=== PATIENT | female | born 1985 | race Two or more races ===

== ENCOUNTER 2017-09-29 15:24 | Emergency (ER) | payer MEDICAID ==
[~2017-09-29] VITALS: Ht 175.3 cm; Wt 61.2 kg
[2017-09-29] MEDS ORDERED: LORazepam Inj 2mg/ml 1ml IV ONE (15:30)
[2017-09-29 16:06] LABS: BASOPHILS % (AUTO) 1.3 % (0.0-2.0); EOSINOPHILS % (AUTO) 0.3 % (0.0-3.0); HEMOGLOBIN 13.7 G/DL (12.0-16.0); LYMPHOCYTES % (AUTO) 36.4 % (20.0-45.0); MEAN CORPUSCULAR VOLUME 95 FL (80-99); MONOCYTES % (AUTO) 8.7 % (1.0-10.0); NEUTROPHILS % (AUTO) 53.3 % (45.0-75.0); PLATELET COUNT 150 K/UL (150-450); RED BLOOD COUNT 4.31 M/UL (4.20-5.40); RED CELL DISTRIBUTION WIDTH 10.5 % (11.6-14.8); WHITE BLOOD COUNT 4.9 K/UL (4.8-10.8)
[2017-09-29 16:10] LABS: APPEARANCE,URINE SLIGHTLY CLOUDY; BILIRUBIN, URINE NEGATIVE (NEGATIVE); COLOR,URINE PALE YELLOW; GLUCOSE, URINE (UA) NEGATIVE (NEGATIVE); KETONES,URINE NEGATIVE (NEGATIVE); LEUKOCYTE ESTERASE ,URINE 3+ (NEGATIVE); NITRITE,URINE NEGATIVE (NEGATIVE); PH,URINE 8 (4.5-8.0); PROTEIN,URINE NEGATIVE (NEGATIVE); UROBILINOGEN,URINE NORMAL MG/DL (0.0-1.0)
[2017-09-29 16:18] LABS: ANION GAP 13 mmol/L (5-15); BLOOD UREA NITROGEN 6 mg/dL (7-18); CALCIUM 9.4 MG/DL (8.5-10.1); CARBON DIOXIDE 22 MMOL/L (21-32); CHLORIDE 104 MMOL/L (98-107); POTASSIUM 3.5 MMOL/L (3.5-5.1); SODIUM 138 MMOL/L (136-145)
--- NOTE | 2017-09-29 16:25 | Emergency Room Report ---
History of Present Illness General Chief Complaint: General Complaint Source: Patient Present Illness HPI 32-year-old female presents ED for evaluation. Patient brought in by EMS stating that she feels short of breath and her heart is racing. EMS states that patient is having an anxiety attack. Patient denies any history of anxiety. Patient states that 2 days ago she had hemorrhoid surgery. Has been taking [id number] ibuprofen for pain. States that starting today she felt that her heart was racing and she felt short of breath. Denies chest pain. States her pain is well-controlled. Denies any bleeding. Denies drug use. No other aggravating relieving factors. Denies any other associated symptoms Allergies: Coded Allergies: No Known Allergies (Unverified , 09/29/17) Patient History Past Medical History: none Past Surgical History: other - hemorrhoids Pertinent Family History: none Social History: Denies: smoking, alcohol use, drug use Last Menstrual Period: last week Now: No : 2 Para: 2 Immunizations: UTD Reviewed Nursing Documentation: PMH: Agreed; PSxH: Agreed Nursing Documentation-PMH Past Medical History: No Stated History Review of Systems All Other Systems: negative except mentioned in HPI Physical Exam Vital Signs Date Time Temp Pulse Resp B/P (MAP) Pulse Ox O2 Delivery O2 Flow Rate FiO2 09/29/17 14:57 100 20 129/87 99 Room Air Sp02 EP Interpretation: reviewed, normal General Appearance: no apparent distress, alert, GCS 15, non-toxic Head: normocephalic, atraumatic Eyes: bilateral eye normal inspection, bilateral eye PERRL ENT: hearing grossly normal, normal pharynx, no angioedema, normal voice Neck: full range of motion, supple/symm/no masses Respiratory: chest non-tender, lungs clear, normal breath sounds, speaking full sentences Cardiovascular #1: regular rate, rhythm, no edema Cardiovascular #2: 2+ carotid (R), 2+ carotid (L), 2+ radial (R), 2+ radial (L) , 2+ dorsalis pedis (R), 2+ dorsalis pedis (L) Gastrointestinal: normal bowel sounds, non tender, soft, non-distended, no guarding, no rebound Rectal: deferred Genitourinary: normal inspection, no CVA tenderness Musculoskeletal: back normal, gait/station normal, normal range of motion, non- tender Neurologic: alert, oriented x3, responsive, motor strength/tone normal, sensory intact, speech normal Psychiatric: judgement/insight normal, memory normal, no suicidal/homicidal ideation, anxious Reflexes: 3+ bicep (R), 3+ bicep (L), 3+ tricep (R), 3+ tricep (L), 3+ knee (R) , 3+ knee (L) Skin: normal color, no rash, warm/dry, well hydrated Lymphatic: no adenopathy Medical Decision Making Diagnostic Impression: Primary Impression: Dyspnea Qualified Codes: R06.00 - Dyspnea, unspecified ER Course Hospital Course 32-year-old female presents ED stating her heart is racing, shortness of breath. Recent hemorrhoid surgery Differential diagnoses include: arrythmia, ACS, PE Clinical course Patient placed on stretcher. on night monitor. After initial history and physical I ordered labs, EKG, chest x-ray, IVFs, ativan labs reviewed- no leukocytosis, hemoglobin/hematocrit stable, troponins negative , electrolytes okay, ddimer negative EKG - NSR, no acute ischemic changes intepreted by me CXR - no acute process On reassessment patient feeling better. Discussed findings with patient. While there is no prior history of anxiety given negative workup and her symptoms improving with Ativan we'll prescribe short course of Ativan. Recommend close follow-up with PMD I. I feel this is a highly complex case requiring extensive working including EKG/Rhythm strip, Xray/CT/US, Blood/urine lab work, repeat exams while in ED, and administration of strong opiates/narcotics for pain control, admission to hospital or close patient follow up. Diagnosis - dyspnea Stable and discharged to home with Rx Ativan. Followup with PMD. Return to ED if symptoms recur or worse Labs Test 09/29/17 15:35 09/29/17 15:50 White Blood Count 4.9 K/UL (4.8-10.8) Red Blood Count 4.31 M/UL (4.20-5.40) Hemoglobin 13.7 G/DL (12.0-16.0) Hematocrit 41.0 % (37.0-47.0) Mean Corpuscular Volume 95 FL (80-99) Mean Corpuscular Hemoglobin 31.8 PG (27.0-31.0) Mean Corpuscular Hemoglobin Concent 33.5 G/DL (32.0-36.0) Red Cell Distribution Width 10.5 % (11.6-14.8) Platelet Count 150 K/UL (150-450) Mean Platelet Volume 9.9 FL (6.5-10.1) Neutrophils (%) (Auto) 53.3 % (45.0-75.0) Lymphocytes (%) (Auto) 36.4 % (20.0-45.0) Monocytes (%) (Auto) 8.7 % (1.0-10.0) Eosinophils (%) (Auto) 0.3 % (0.0-3.0) Basophils (%) (Auto) 1.3 % (0.0-2.0) D-Dimer 0.19 mg/L FEU (0.00-0.49) Sodium Level 138 MMOL/L (136-145) Potassium Level 3.5 MMOL/L (3.5-5.1) Chloride Level 104 MMOL/L (98-107) Carbon Dioxide Level 22 MMOL/L (21-32) Anion Gap 13 mmol/L (5-15) Blood Urea Nitrogen 6 mg/dL (7-18) Creatinine 1.0 MG/DL (0.55-1.30) Estimat Glomerular Filtration Rate > 60 mL/min (>60) Glucose Level 106 MG/DL (74-106) Calcium Level 9.4 MG/DL (8.5-10.1) Total Bilirubin 1.4 MG/DL (0.2-1.0) Direct Bilirubin 0.3 MG/DL (0.0-0.3) Aspartate Amino Transf (AST/SGOT) 18 U/L (15-37) Alanine Aminotransferase (ALT/SGPT) 15 U/L (12-78) Alkaline Phosphatase 69 U/L (46-116) Total Creatine Kinase 125 U/L (26-308) Creatine Kinase MB 0.6 NG/ML (0.0-3.6) Creatine Kinase MB Relative Index 0.4 Troponin I 0.000 ng/mL (0.000-0.056) Total Protein 7.8 G/DL (6.4-8.2) Albumin 4.0 G/DL (3.4-5.0) Globulin 3.8 g/dL Albumin/Globulin Ratio 1.1 (1.0-2.7) Urine Color Pale yellow Urine Appearance Slightly cloudy Urine pH 8 (4.5-8.0) Urine Specific [place] 1.010 (1.005-1.035) Urine Protein Negative (NEGATIVE) Urine Glucose (UA) Negative (NEGATIVE) Urine Ketones Negative (NEGATIVE) Urine Occult Blood 1+ (NEGATIVE) Urine Nitrite Negative (NEGATIVE) Urine Bilirubin Negative (NEGATIVE) Urine Urobilinogen Normal MG/DL (0.0-1.0) Urine Leukocyte Esterase 3+ (NEGATIVE) Urine RBC 5-10 /HPF (0 - 2) Urine WBC 10-15 /HPF (0 - 2) Urine Squamous Epithelial Cells Many /LPF (NONE/OCC) Urine Bacteria Few /HPF (NONE) Urine HCG, Qualitative Negative (NEGATIVE) Urine Opiates Screen Negative (NEGATIVE) Urine Barbiturates Screen Negative (NEGATIVE) Phencyclidine (PCP) Screen Negative (NEGATIVE) Urine Amphetamines Screen Negative (NEGATIVE) Urine Benzodiazepines Screen Negative (NEGATIVE) Urine Cocaine Screen Negative (NEGATIVE) Urine Marijuana (THC) Screen Negative (NEGATIVE) EKG Diagnostic Results Rate: normal Rhythm: NSR ST Segments: no acute changes ASA given to the pt in ED: No Rhythm Strip Diag. Results EP Interpretation: yes Rhythm: NSR, no PVC's, no ectopy Chest X-Ray Diagnostic Results Chest X-Ray Diagnostic Results : Chest X-Ray Ordered: Yes # of Views/Limited/Complete: 1 View Indication: Shortness of Breath EP Interpretation: Yes Interpretation: no consolidation, no effusion, no pneumothorax, no acute cardiopulmonary disease Impression: No acute disease Electronically Signed by: Electronically signed by Dawson Washington MD Last Vital Signs Date Time Temp Pulse Resp B/P (MAP) Pulse Ox O2 Delivery O2 Flow Rate FiO2 09/29/17 14:57 100 20 129/87 99 Room Air Status: improved Disposition: HOME, SELF-CARE Condition: Stable Scripts Lorazepam* (ATIVAN*) 1 Mg Tablet 1 MG ORAL THREE TIMES A DAY, #15 TAB Prov: Dawson Washington MD 09/29/17 Referrals: NOT CHOSEN IPA/,REFERRING (PCP) Dawson Washington MD September 29, 2017 16:25
[2017-09-29 16:32] LABS: ALANINE AMINOTRANSFERASE 15 U/L (12-78); ALBUMIN/GLOBULIN RATIO 1.1 (1.0-2.7); ALKALINE PHOSPHATASE 69 U/L (46-116); ASPARTATE AMINO TRANSFERASE 18 U/L (15-37); BILIRUBIN,DIRECT 0.3 MG/DL (0.0-0.3); BILIRUBIN,TOTAL 1.4 MG/DL (0.2-1.0); CKMB 0.6 NG/ML (0.0-3.6); CREATINE KINASE 125 U/L (26-308)
--- NOTE | 2017-09-29 17:28 | Diagnostic Imaging Report ---
EXAM: XR Chest, 1 View CLINICAL HISTORY: Shortness of breath TECHNIQUE: Frontal view of the chest. COMPARISON: No relevant prior studies available. FINDINGS: Lungs: Unremarkable. The lungs appear clear. No confluent pulmonary opacities. Pleural space: Unremarkable. No pneumothorax. Heart: Unremarkable. No cardiomegaly. Mediastinum: Unremarkable. Bones/joints: Unremarkable. Tubes, lines and devices: EKG leads overlie the thorax. IMPRESSION: No acute findings.
[2017-09-29] MEDS ORDERED: ATIVAN1 MG ORAL (17:47)
[2017-09-29 17:57] VITALS: BP 110/67
[2017-09-29 17:58] VITALS: BP 110/67
--- NOTE | 2017-10-02 14:44 | Cardiology Report ---
APPROVED REPORT EKG Measurement Heart [id number] Normal sinus rhythm Low voltage QRS Borderline ECG
== END 2017-09-29 18:00 | disposition home or self-care (01) ==
LOC: EDBD 15:24 → EMR 16:14
DX: R06.00 Dyspnea, unspecified (principal)
CPT/HCPCS: 36415; 71045; 80053; 80307; 81003; 81025; 82248; 82550; 82553; 84484; 85025; 85379; 87086; 93005; 96374; 96375; 99283

== ENCOUNTER 2017-12-17 12:31 | Emergency (ER) | payer MEDICAID ==
[~2017-12-17] VITALS: Ht 180.3 cm; Wt 63.5 kg
[~2017-12-17 12:31] MED LIST: ATIVAN1 MG ORAL
[2017-12-17 12:50] VITALS: BP 98/61
--- NOTE | 2017-12-17 13:14 | Emergency Room Report ---
History of Present Illness General Chief Complaint: Chest Pain Source: Patient Present Illness HPI Patient is a 32-year-old female who presented after increased chest discomfort. Patient gradual onset of symptoms. Patient had prior history of similar type symptoms. She had prior history of hemorrhoid banding surgery several months ago. Patient reports having intermittent and increased pain to that area. She reports having some increased pain to the left arm as well as left leg. She denies any trauma. She reports having no prior medical history. She denies smoking or drug use. She denies being . Allergies: Coded Allergies: No Known Allergies (Unverified , 09/29/17) Patient History Past Medical History: see triage record Now: No Reviewed Nursing Documentation: PMH: Agreed; PSxH: Agreed Nursing Documentation-PMH Past Medical History: No History, Except For Hx Cardiac Problems: Yes - Irregular heartbeat Review of Systems All Other Systems: negative except mentioned in HPI Physical Exam Vital Signs Date Time Temp Pulse Resp B/P (MAP) Pulse Ox O2 Delivery O2 Flow Rate FiO2 12/17/17 12:46 78 18 102/71 100 Room Air Sp02 EP Interpretation: reviewed, normal General Appearance: normal inspection, well appearing, no apparent distress, alert, GCS 15, non-toxic Head: atraumatic ENT: normal ENT inspection, hearing grossly normal, normal voice Neck: normal inspection, full range of motion, supple, no bony tend Respiratory: normal inspection, lungs clear, normal breath sounds, no respiratory distress, no retraction, no wheezing Cardiovascular #1: regular rate, rhythm, no edema Gastrointestinal: normal inspection, normal bowel sounds, non tender, soft, no guarding, no hernia Rectal: hemorrhoids - no erythema or discharge noted, hemorrhoid at 6:00 slight enlarged Genitourinary: no CVA tenderness Musculoskeletal: normal inspection, back normal, normal range of motion, no calf tenderness Neurologic: normal inspection, alert, oriented x3, responsive, laboratory courier III-XII nml as tested, speech normal Psychiatric: normal inspection, judgement/insight normal, mood/affect normal Skin: normal inspection, normal color, no rash Medical Decision Making Diagnostic Impression: Primary Impression: Chest pain ER Course patient presented for chest pain.Differential diagnosis included but was not limited to acute coronary syndrome, pulmonary embolism, pneumonia, aortic dissection, shingles, pneumothorax, aortic dissection, esophageal rupture, pericarditis. Because of complexity of patient's case laboratory testing and imaging studies were ordered. EKG Diagnostic Results Rate: normal - 74 Rhythm: NSR ST Segments: no acute changes Chest X-Ray Diagnostic Results Chest X-Ray Diagnostic Results : Chest X-Ray Ordered: Yes # of Views/Limited/Complete: 1 View Indication: Chest Pain EP Interpretation: Yes Interpretation: no consolidation, no effusion, no pneumothorax, no acute cardiopulmonary disease Impression: No acute disease Electronically Signed by: Electronically signed by Dr. Blair Head M.D. Last Vital Signs Date Time Temp Pulse Resp B/P (MAP) Pulse Ox O2 Delivery O2 Flow Rate FiO2 12/17/17 12:50 87 18 Room Air 12/17/17 12:50 98/61 100 Status: improved Disposition: HOME, SELF-CARE Condition: Stable Scripts Docusate Sodium* (COLACE*) 100 Mg Capsule 100 MG ORAL TWICE A DAY, #14 CAP Prov: Blair Head MD 12/17/17 Blair Head MD Dec 17, 2017 13:14
[2017-12-17] MEDS ORDERED: COLACE100 MG ORAL (13:23)
[2017-12-17 13:34] LABS: APPEARANCE,URINE CLEAR; BILIRUBIN, URINE NEGATIVE (NEGATIVE); GLUCOSE, URINE (UA) NEGATIVE (NEGATIVE); KETONES,URINE NEGATIVE (NEGATIVE); LEUKOCYTE ESTERASE ,URINE 1+ (NEGATIVE); NITRITE,URINE NEGATIVE (NEGATIVE); PH,URINE 7 (4.5-8.0); PROTEIN,URINE NEGATIVE (NEGATIVE); UROBILINOGEN,URINE NORMAL MG/DL (0.0-1.0)
[2017-12-17 13:50] LABS: COLOR,URINE YELLOW
[2017-12-17 14:14] VITALS: BP 106/70
--- NOTE | 2017-12-17 17:11 | Diagnostic Imaging Report ---
Indication: Chest pain, cough Technique: One view of the chest Comparison: 09/29/2017 Findings: Lungs and pleural spaces are clear. Heart size is normal . Findings are unchanged Impression: No acute process
--- NOTE | 2017-12-18 14:02 | Cardiology Report ---
APPROVED REPORT EKG Measurement Heart [id number] Normal sinus rhythm Normal ECG
== END 2017-12-17 14:15 | disposition home or self-care (01) ==
LOC: EMR 13:14
DX: R07.9 Chest pain, unspecified (principal)
CPT/HCPCS: 71045; 81003; 81025; 93005; 99283

== ENCOUNTER 2018-02-01 11:13 | Emergency (ER) | payer MEDICAID ==
[~2018-02-01] VITALS: Ht 175.3 cm; Wt 56.7 kg
[~2018-02-01 11:13] MED LIST changes: +COLACE100 MG ORAL
[2018-02-01 11:28] VITALS: BP 111/72
[2018-02-01] MEDS ORDERED: Mylanta II UD 30ml ORAL ONE (11:30)
[2018-02-01] MEDS ORDERED: Dicyclomine HCl 10mg/5ml oral soln ORAL ONE (11:30)
--- NOTE | 2018-02-01 11:33 | Emergency Room Report ---
History of Present Illness General Chief Complaint: Abdominal Pain Source: Patient Present Illness HPI Patient presents with complaints of fairly diffuse abdominal pain Mid abdomen bilateral lower abdomen also now epigastric and bilateral upper abdominal area Patient reports that she has a left-sided history of ovarian cyst At this time however denies any lower abdominal pain Her pain initially started about 2 weeks ago [place] time Denies any vomiting She reports two episodes of loose stool Denies any chest pain or shortness of breath denies any fevers or rash Allergies: Coded Allergies: No Known Allergies (Unverified , 09/29/17) Patient History Past Medical History: see triage record Pertinent Family History: none Now: No Reviewed Nursing Documentation: PMH: Agreed; PSxH: Agreed Nursing Documentation-PMH Past Medical History: No History, Except For Hx Cardiac Problems: Yes - Irregular heartbeat Review of Systems All Other Systems: negative except mentioned in HPI Physical Exam Vital Signs Date Time Temp Pulse Resp B/P (MAP) Pulse Ox O2 Delivery O2 Flow Rate FiO2 02/01/18 11:19 98.0 78 20 111/72 100 Room Air 98.1 Sp02 EP Interpretation: reviewed, normal General Appearance: well appearing, no apparent distress Head: normocephalic, atraumatic Eyes: bilateral eye PERRL, bilateral eye EOMI ENT: hearing grossly normal, normal pharynx, TMs + canals normal, uvula midline Neck: full range of motion, supple, no meningismus, no bony tend Respiratory: lungs clear, normal breath sounds, no rhonchi, no respiratory distress, no retraction, no accessory muscle use Cardiovascular #1: normal peripheral pulses, regular rate, rhythm, no edema, no gallop, no JVD, no murmur Gastrointestinal: normal bowel sounds, non tender, soft, no mass, no organomegaly, non-distended, no guarding, no hernia, no pulsatile mass, no rebound Genitourinary: no CVA tenderness Musculoskeletal: normal inspection Neurologic: oriented x3, responsive, call center recruiter III-XII nml as tested, motor strength/ tone normal, sensory intact Psychiatric: mood/affect normal Skin: normal color, no rash, warm/dry, palpation normal Lymphatic: normal inspection, no adenopathy Medical Decision Making Diagnostic Impression: Primary Impression: Abdominal pain ER Course With the patient's history and examination, multiple differentials considered, including but not limited to , ectopic , ovarian torsion, gastritis, cholecystitis, pancreatitis, appendicitis Patient's abdominal exam however is fairly soft in nature Symptoms also somewhat of a more chronicity to them Extensive blood work was initiated test is negative Patient's white blood cell count is very minimally low somewhat nonspecific There is evidence of UTI Patient also reports previous history of ovarian cyst While ovarian torsion does not clinically correlate with her presentation, possible ruptured cyst can cause some of the discomfort On repeat exam patient's abdomen remained soft Antibiotics are provided for the UTI and patient stable for close outpatient follow-up with close return to ER instructions with worsening symptoms Labs Test 02/01/18 11:35 White Blood Count 4.1 K/UL (4.8-10.8) Red Blood Count 4.25 M/UL (4.20-5.40) Hemoglobin 13.7 G/DL (12.0-16.0) Hematocrit 41.3 % (37.0-47.0) Mean Corpuscular Volume 97 FL (80-99) Mean Corpuscular Hemoglobin 32.3 PG (27.0-31.0) Mean Corpuscular Hemoglobin Concent 33.2 G/DL (32.0-36.0) Red Cell Distribution Width 10.9 % (11.6-14.8) Platelet Count 164 K/UL (150-450) Mean Platelet Volume 9.4 FL (6.5-10.1) Neutrophils (%) (Auto) 55.5 % (45.0-75.0) Lymphocytes (%) (Auto) 30.6 % (20.0-45.0) Monocytes (%) (Auto) 7.4 % (1.0-10.0) Eosinophils (%) (Auto) 4.9 % (0.0-3.0) Basophils (%) (Auto) 1.6 % (0.0-2.0) Urine Color Pale yellow Urine Appearance Cloudy Urine pH 7 (4.5-8.0) Urine Specific [place] 1.010 (1.005-1.035) Urine Protein Negative (NEGATIVE) Urine Glucose (UA) Negative (NEGATIVE) Urine Ketones Negative (NEGATIVE) Urine Blood Negative (NEGATIVE) Urine Nitrite Negative (NEGATIVE) Urine Bilirubin Negative (NEGATIVE) Urine Urobilinogen Normal MG/DL (0.0-1.0) Urine Leukocyte Esterase 2+ (NEGATIVE) Urine RBC 0-2 /HPF (0 - 2) Urine WBC 5-10 /HPF (0 - 2) Urine Squamous Epithelial Cells Many /LPF (NONE/OCC) Urine Bacteria Few /HPF (NONE) Urine HCG, Qualitative Negative (NEGATIVE) Sodium Level 140 MMOL/L (136-145) Potassium Level 3.8 MMOL/L (3.5-5.1) Chloride Level 104 MMOL/L (98-107) Carbon Dioxide Level 28 MMOL/L (21-32) Anion Gap 9 mmol/L (5-15) Blood Urea Nitrogen 6 mg/dL (7-18) Creatinine 0.8 MG/DL (0.55-1.30) Estimat Glomerular Filtration Rate > 60 mL/min (>60) Glucose Level 85 MG/DL (74-106) Calcium Level 9.5 MG/DL (8.5-10.1) Total Bilirubin 1.7 MG/DL (0.2-1.0) Direct Bilirubin 0.3 MG/DL (0.0-0.3) Aspartate Amino Transf (AST/SGOT) 17 U/L (15-37) Alanine Aminotransferase (ALT/SGPT) 18 U/L (12-78) Alkaline Phosphatase 70 U/L (46-116) Total Protein 7.9 G/DL (6.4-8.2) Albumin 4.0 G/DL (3.4-5.0) Globulin 3.9 g/dL Albumin/Globulin Ratio 1.0 (1.0-2.7) Lipase 167 U/L (73-393) Last Vital Signs Date Time Temp Pulse Resp B/P (MAP) Pulse Ox O2 Delivery O2 Flow Rate FiO2 02/01/18 11:28 98.1 20 111/72 100 Room Air 98.1 02/01/18 11:19 78 Status: improved Disposition: HOME, SELF-CARE Condition: Improved Scripts Ondansetron (Zofran) 4 Mg Tablet 4 MG ORAL Q8HR PRN for Nausea & Vomiting, #10 TAB Prov: Hari Wilder DO 02/01/18 Nitrofurantoin Macrocrystal (MACRODANTIN) 100 Mg Capsule 100 MG ORAL BID for 5 Days, CAP Prov: Hari Wilder DO 02/01/18 Additional Instructions: Patient is provided with the discharge instructions notified to follow up with primary doctor in the next 2-3 days otherwise return to the er with any worsening symptoms. Please note that this report is being documented using DRAGON technology. This can lead to erroneous entry secondary to incorrect interpretation by the dictating instrument. Hari Wilder DO Feb 01, 2018 11:32
[2018-02-01 11:50] LABS: BASOPHILS % (AUTO) 1.6 % (0.0-2.0); EOSINOPHILS % (AUTO) 4.9 % (0.0-3.0); HEMATOCRIT 41.3 % (37.0-47.0); HEMOGLOBIN 13.7 G/DL (12.0-16.0); LYMPHOCYTES % (AUTO) 30.6 % (20.0-45.0); MEAN CORPUSCULAR VOLUME 97 FL (80-99); MONOCYTES % (AUTO) 7.4 % (1.0-10.0); NEUTROPHILS % (AUTO) 55.5 % (45.0-75.0); PLATELET COUNT 164 K/UL (150-450); RED BLOOD COUNT 4.25 M/UL (4.20-5.40); RED CELL DISTRIBUTION WIDTH 10.9 % (11.6-14.8); WHITE BLOOD COUNT 4.1 K/UL (4.8-10.8)
[2018-02-01 11:58] LABS: APPEARANCE,URINE CLOUDY; BILIRUBIN, URINE NEGATIVE (NEGATIVE); COLOR,URINE PALE YELLOW; GLUCOSE, URINE (UA) NEGATIVE (NEGATIVE); KETONES,URINE NEGATIVE (NEGATIVE); LEUKOCYTE ESTERASE ,URINE 2+ (NEGATIVE); NITRITE,URINE NEGATIVE (NEGATIVE); PH,URINE 7 (4.5-8.0); PROTEIN,URINE NEGATIVE (NEGATIVE); UROBILINOGEN,URINE NORMAL MG/DL (0.0-1.0)
[2018-02-01 12:08] LABS: ANION GAP 9 mmol/L (5-15); BLOOD UREA NITROGEN 6 mg/dL (7-18); CALCIUM 9.5 MG/DL (8.5-10.1); CARBON DIOXIDE 28 MMOL/L (21-32); CHLORIDE 104 MMOL/L (98-107); CREATININE 0.8 MG/DL (0.55-1.30); POTASSIUM 3.8 MMOL/L (3.5-5.1); SODIUM 140 MMOL/L (136-145)
[2018-02-01] MEDS ORDERED: Ketorolac 60mg Inj IM ONE (12:15)
[2018-02-01 12:27] LABS: ALANINE AMINOTRANSFERASE 18 U/L (12-78); ALKALINE PHOSPHATASE 70 U/L (46-116); ASPARTATE AMINO TRANSFERASE 17 U/L (15-37); BILIRUBIN,TOTAL 1.7 MG/DL (0.2-1.0)
[2018-02-01 12:28] LABS: BILIRUBIN,DIRECT 0.3 MG/DL (0.0-0.3)
[2018-02-01 13:42] VITALS: BP 103/69
[2018-02-01] MEDS ORDERED: MACRODANTIN100 MG ORAL (13:59)
[2018-02-01] MEDS ORDERED: ZOFRAN4 M1 ORAL (13:59)
[2018-02-01 14:10] VITALS: BP 103/69
== END 2018-02-01 14:10 | disposition home or self-care (01) ==
LOC: EMR 12:05
DX: N39.0 Urinary tract infection, site not specified (principal)
CPT/HCPCS: 36415; 80053; 81003; 81025; 82248; 83690; 85025; 96372; 99284

== ENCOUNTER 2018-02-09 10:12 | Emergency (ER) | payer MEDICAID ==
[~2018-02-09] VITALS: Ht 175.3 cm; Wt 56.7 kg
[~2018-02-09 10:12] MED LIST changes: +MACRODANTIN100 MG ORAL; +ZOFRAN4 M1 ORAL
[2018-02-09] MEDS ORDERED: Isovue-300 100ml vial INJ PRN (10:30)
--- NOTE | 2018-02-09 11:05 | Emergency Room Report ---
History of Present Illness General Chief Complaint: Abdominal Pain Source: Patient Present Illness HPI This patient states that she has had epigastric and left upper quadrant abdominal pain for the past month. She was seen here at [facility] a week ago and diagnosed with a urinary tract infection and given antibiotics. The patient states she took the course of antibiotics and did not have any improvement. She also saw her primary care physician last week and underwent a pelvic ultrasound but states that she has not received the results of the test. She states she continues to have pain in her epigastrium and left upper quadrant and it is becoming worse. She states that the symptoms are worse with any oral intake including water. She denies diarrhea. She has had constipation. However, she states that she has not been eating so she is unsure whether she has constipation or she doesn't have much stool. She denies fever or chills. She has had nausea but no vomiting. She has no other complaints. Allergies: Coded Allergies: No Known Allergies (Unverified , 09/29/17) Patient History Past Medical History: none, see triage record Past Surgical History: other - Hemorroidectomy Social History: Denies: smoking, alcohol use, drug use Last Menstrual Period: 01/20/18 Now: No Reviewed Nursing Documentation: PMH: Agreed; PSxH: Agreed Nursing Documentation-PMH Past Medical History: No History, Except For Hx Cardiac Problems: Yes - Irregular heartbeat Review of Systems All Other Systems: negative except mentioned in HPI Physical Exam Vital Signs Date Time Temp Pulse Resp B/P (MAP) Pulse Ox O2 Delivery O2 Flow Rate FiO2 02/09/18 10:20 98.2 80 18 113/78 100 Room Air 98.2 Sp02 EP Interpretation: reviewed, normal General Appearance: no apparent distress, alert, GCS 15, non-toxic Head: normocephalic, atraumatic Eyes: bilateral eye normal inspection, bilateral eye PERRL ENT: hearing grossly normal, normal pharynx, no angioedema, normal voice Neck: full range of motion, supple/symm/no masses Respiratory: chest non-tender, lungs clear, normal breath sounds, no respiratory distress, no retraction, no accessory muscle use, speaking full sentences Cardiovascular #1: regular rate, rhythm, no edema Gastrointestinal: normal bowel sounds, soft, non-distended, no guarding, no rebound, tenderness - TTP in epigastrium and LUQ Rectal: deferred Musculoskeletal: back normal, gait/station normal, normal range of motion, non- tender Neurologic: alert, oriented x3, responsive, motor strength/tone normal, sensory intact, speech normal Psychiatric: judgement/insight normal, memory normal, mood/affect normal, no suicidal/homicidal ideation Skin: normal color, no rash, warm/dry, well hydrated Medical Decision Making Diagnostic Impression: Primary Impression: Ovarian cyst Additional Impression: Abdominal pain ER Course This patient has ongoing abdominal pain. She has a history of a left ovarian cyst and has left upper quadrant abdominal pain, so I felt I should obtain a pelvic ultrasound. She is found to have a 4 cm complex hemorrhagic cyst. This would not be the typical location for the patient's tenderness and pain, so I also obtained a CT of the abdomen and pelvis and a right upper quadrant ultrasound. These studies were unremarkable other than the left ovarian cyst discussed previously. I will also treat this patient for gastritis. She is instructed to see her PCP for her L. ovarian cyst and get a repeat US in 1 month. She indicated understanding and intention to do so. She is given close return precautions and follow up instructions. Laboratory Tests Test 02/09/18 10:39 White Blood Count 4.4 K/UL (4.8-10.8) L Red Blood Count 4.42 M/UL (4.20-5.40) Hemoglobin 14.4 G/DL (12.0-16.0) Hematocrit 42.8 % (37.0-47.0) Mean Corpuscular Volume 97 FL (80-99) Mean Corpuscular Hemoglobin 32.5 PG (27.0-31.0) H Mean Corpuscular Hemoglobin Concent 33.6 G/DL (32.0-36.0) Red Cell Distribution Width 10.9 % (11.6-14.8) L Platelet Count 126 K/UL (150-450) L Mean Platelet Volume 11.2 FL (6.5-10.1) H Neutrophils (%) (Auto) 35.0 % (45.0-75.0) L Lymphocytes (%) (Auto) 38.2 % (20.0-45.0) Monocytes (%) (Auto) 10.7 % (1.0-10.0) H Eosinophils (%) (Auto) 14.0 % (0.0-3.0) H Basophils (%) (Auto) 2.1 % (0.0-2.0) H Urine Color Pale yellow Urine Appearance Clear Urine pH 6 (4.5-8.0) Urine Specific [place] 1.010 (1.005-1.035) Urine Protein Negative (NEGATIVE) Urine Glucose (UA) Negative (NEGATIVE) Urine Ketones Negative (NEGATIVE) Urine Blood Negative (NEGATIVE) Urine Nitrite Negative (NEGATIVE) Urine Bilirubin Negative (NEGATIVE) Urine Urobilinogen Normal MG/DL (0.0-1.0) Urine Leukocyte Esterase Negative (NEGATIVE) Urine HCG, Qualitative Negative (NEGATIVE) Sodium Level 139 MMOL/L (136-145) Potassium Level 4.2 MMOL/L (3.5-5.1) Chloride Level 104 MMOL/L (98-107) Carbon Dioxide Level 26 MMOL/L (21-32) Anion Gap 9 mmol/L (5-15) Blood Urea Nitrogen 9 mg/dL (7-18) Creatinine 0.9 MG/DL (0.55-1.30) Estimate Glomerular Filtration Rate > 60 mL/min (>60) Glucose Level 85 MG/DL (74-106) Calcium Level 9.8 MG/DL (8.5-10.1) Total Bilirubin 1.9 MG/DL (0.2-1.0) H Direct Bilirubin 0.2 MG/DL (0.0-0.3) Aspartate Amino Transferase (AST) 16 U/L (15-37) Alanine Aminotransferase (ALT) 18 U/L (12-78) Alkaline Phosphatase 79 U/L (46-116) Total Protein 8.2 G/DL (6.4-8.2) Albumin 4.2 G/DL (3.4-5.0) Globulin 4.0 g/dL Albumin/Globulin Ratio 1.0 (1.0-2.7) Lipase 167 U/L (73-393) Urine Opiates Screen Negative (NEGATIVE) Urine Barbiturates Screen Negative (NEGATIVE) Phencyclidine (PCP) Screen Negative (NEGATIVE) Urine Amphetamines Screen Negative (NEGATIVE) Urine Benzodiazepines Screen Negative (NEGATIVE) Urine Cocaine Screen Negative (NEGATIVE) Urine Marijuana (THC) Screen Negative (NEGATIVE) CT/MRI/US Diagnostic Results CT/MRI/US Diagnostic Results : Imaging Test Ordered: CT abd/pelvis, RUQ US, pelvic US Impression IMPRESSION: 1. 4.2 cm complex/hemorrhagic left ovarian cyst. 2. Appendix not identified. No other acute findings. See official report. Last Vital Signs Date Time Temp Pulse Resp B/P (MAP) Pulse Ox O2 Delivery O2 Flow Rate FiO2 02/09/18 10:20 98.2 80 18 113/78 100 Room Air 98.2 Status: improved Disposition: HOME, SELF-CARE Condition: Improved Referrals: [facility],REFERRING (PCP) Irene Haji DO Feb 09, 2018 11:05
[2018-02-09] MEDS ORDERED: Ketorolac 30mg Inj IV ONE (11:15)
[2018-02-09 11:16] LABS: APPEARANCE,URINE CLEAR; BASOPHILS % (AUTO) 2.1 % (0.0-2.0); BILIRUBIN, URINE NEGATIVE (NEGATIVE); COLOR,URINE PALE YELLOW; GLUCOSE, URINE (UA) NEGATIVE (NEGATIVE); HEMATOCRIT 42.8 % (37.0-47.0); HEMOGLOBIN 14.4 G/DL (12.0-16.0); KETONES,URINE NEGATIVE (NEGATIVE); LEUKOCYTE ESTERASE ,URINE NEGATIVE (NEGATIVE); LYMPHOCYTES % (AUTO) 38.2 % (20.0-45.0); MEAN CORPUSCULAR VOLUME 97 FL (80-99); MONOCYTES % (AUTO) 10.7 % (1.0-10.0); NITRITE,URINE NEGATIVE (NEGATIVE); PH,URINE 6 (4.5-8.0); PLATELET COUNT 126 K/UL (150-450); PROTEIN,URINE NEGATIVE (NEGATIVE); RED BLOOD COUNT 4.42 M/UL (4.20-5.40); RED CELL DISTRIBUTION WIDTH 10.9 % (11.6-14.8); UROBILINOGEN,URINE NORMAL MG/DL (0.0-1.0); WHITE BLOOD COUNT 4.4 K/UL (4.8-10.8)
[2018-02-09 11:25] VITALS: BP 105/75
[2018-02-09 11:26] LABS: ANION GAP 9 mmol/L (5-15); BLOOD UREA NITROGEN 9 mg/dL (7-18); CALCIUM 9.8 MG/DL (8.5-10.1); CARBON DIOXIDE 26 MMOL/L (21-32); CHLORIDE 104 MMOL/L (98-107); CREATININE 0.9 MG/DL (0.55-1.30); POTASSIUM 4.2 MMOL/L (3.5-5.1); SODIUM 139 MMOL/L (136-145)
[2018-02-09 11:39] LABS: ALANINE AMINOTRANSFERASE 18 U/L (12-78); ALBUMIN 4.2 G/DL (3.4-5.0); ALKALINE PHOSPHATASE 79 U/L (46-116); ASPARTATE AMINO TRANSFERASE 16 U/L (15-37); BILIRUBIN,TOTAL 1.9 MG/DL (0.2-1.0)
[2018-02-09 11:42] LABS: BILIRUBIN,DIRECT 0.2 MG/DL (0.0-0.3)
--- NOTE | 2018-02-09 12:24 | Diagnostic Imaging Report ---
EXAM: CT Abdomen and Pelvis With Intravenous Contrast CLINICAL HISTORY: ABD PAIN TECHNIQUE: Axial computed tomography images of the abdomen and pelvis with intravenous contrast. CTDI is 11.22 + 0.15 mGy and DLP is 568 mGy-cm. One or more of the following dose reduction techniques were used: automated exposure control, adjustment of the mA and/or kV according to patient size, use of iterative reconstruction technique. COMPARISON: No relevant prior studies available. FINDINGS: Lung bases: Unremarkable. ABDOMEN: Liver: Unremarkable. Gallbladder and bile ducts: No calcified stones. No ductal dilation. Pancreas: Unremarkable. Spleen: Unremarkable. Adrenals: Unremarkable. Kidneys and ureters: Unremarkable. No hydronephrosis. Stomach and bowel: No luis mural thickening. Nonobstructive bowel gas pattern. PELVIS: Appendix: Appendix not identified. Bladder: Unremarkable. Reproductive: 4.2 cm complex/hemorrhagic left ovarian cyst. ABDOMEN and PELVIS: Intraperitoneal space: Small amount of fluid in the pelvis. Bones/joints: No acute fracture. Soft tissues: Unremarkable. Vasculature: Unremarkable. No abdominal aortic aneurysm. Lymph nodes: No enlarged lymph nodes. IMPRESSION: 1. 4.2 cm complex/hemorrhagic left ovarian cyst. 2. Appendix not identified.
[2018-02-09 13:20] VITALS: BP 96/70
[2018-02-09] MEDS ORDERED: NEXIUM40 MG ORAL (14:43)
[2018-02-09] MEDS ORDERED: ACETAMINOPHEN500 M3 ORAL (14:43)
[2018-02-09] MEDS ORDERED: RANITIDINE HCL150 MG ORAL (14:43)
[2018-02-09 15:00] VITALS: BP 105/67
[2018-02-09 15:12] VITALS: BP 105/67
--- NOTE | 2018-02-09 15:39 | Diagnostic Imaging Report ---
EXAM: US Abdomen Complete CLINICAL HISTORY: PAIN TECHNIQUE: Real-time ultrasound of the abdomen (complete) with image documentation. COMPARISON: No relevant prior studies available. FINDINGS: Liver: No discrete mass demonstrated. Gallbladder: No gallstones or biliary ductal dilatation. Common bile duct: Unremarkable as visualized. Pancreas: Unremarkable as visualized Kidneys: No hydronephrosis. Spleen: No splenomegaly. Aorta: Unremarkable. No aneurysm. Inferior vena cava: Unremarkable. IMPRESSION: No gallstones or biliary ductal dilatation.
--- NOTE | 2018-02-09 16:42 | Diagnostic Imaging Report ---
EXAM: US Pelvis Complete, Transabdominal US Pelvis, Transvaginal CLINICAL HISTORY: PAIN TECHNIQUE: Real-time transabdominal and transvaginal pelvic ultrasound (complete) with image documentation. Transvaginal imaging was used for better evaluation of the endometrium and adnexa. COMPARISON: No relevant prior studies available. FINDINGS: Uterus/cervix: Uterus measures 9 x 5 x 4.3 cm. Endometrium is 8 mm. Right ovary: Right ovary measures 2.6 x 2.5 x 1.8 cm. No complex mass lesion or torsion. Left ovary: Complex, presumably hemorrhagic left ovarian cyst measuring 4 cm. Color flow noted to the left ovary Duplex Doppler not performed on the left ovary. Left ovary measures 5.6 x 4.8 x 3.9 cm. Free fluid: Fluid in the pelvis. IMPRESSION: Complex, presumably hemorrhagic left ovarian cyst measuring 4 cm.
== END 2018-02-09 15:12 | disposition home or self-care (01) ==
LOC: EMR 10:32
DX: N83.202 Unspecified ovarian cyst, left side (principal)
CPT/HCPCS: 36415; 74177; 76700; 76830; 76856; 80053; 80307; 81003; 81025; 82248; 83690; 85025; 96361; 96374; 96375; 99284; J1885; J2405; Q9967

== ENCOUNTER 2018-04-10 11:52 | Emergency (ER) | payer MEDICAID ==
[~2018-04-10] VITALS: Ht 175.3 cm; Wt 52.2 kg
[~2018-04-10 11:52] MED LIST changes: +ACETAMINOPHEN500 M3 ORAL; +NEXIUM40 MG ORAL; +RANITIDINE HCL150 MG ORAL
[2018-04-10] MEDS ORDERED: NKM (12:02)
[2018-04-10 12:09] VITALS: BP 99/67
[2018-04-10] MEDS ORDERED: Acetaminophen 500mg (ES) tab ORAL ONE (12:15)
--- NOTE | 2018-04-10 12:15 | Emergency Room Report ---
History of Present Illness General Chief Complaint: Vaginal Source: Patient, Medical Record Present Illness HPI 32-year-old female patient presents ER complaining of vaginal bleeding for the past 2 days. Reports symptoms began yesterday, states she has gone through 5 pads since that time. Reports passage of clots. Reports she discontinued her control weeks ago after being told by her primary care doctor to stop the medication, was told to stop medication because she was having shortness of breath symptoms while taking the medication. Reports no longer taking any control medication. Denies chest pain or shortness of breath at this time. Denies fever, vomiting. Reports mild left-sided abdominal pain during this time. Reports dysuria. reports "hot back pain" during this time. denies bowel or bladder incontinence. Denies diarrhea. states she has appointment scheduled for next month with her primary care provider to discuss new control medication. denies syncope, fainting. Allergies: Coded Allergies: No Known Allergies (Unverified , 04/10/18) Patient History Past Medical History: see triage record Last Menstrual Period: 03/27/18 Now: No Reviewed Nursing Documentation: PMH: Agreed; PSxH: Agreed Nursing Documentation-PMH Hx Cardiac Problems: Yes - Irregular heartbeat, LEFT OVARIAN CYST Review of Systems All Other Systems: negative except mentioned in HPI Physical Exam Vital Signs Date Time Temp Pulse Resp B/P (MAP) Pulse Ox O2 Delivery O2 Flow Rate FiO2 04/10/18 11:57 98.1 80 18 99/67 100 Room Air Sp02 EP Interpretation: reviewed, normal General Appearance: well appearing, no apparent distress, alert, GCS 15, non- toxic Head: normocephalic, atraumatic Eyes: bilateral eye normal inspection, bilateral eye PERRL ENT: hearing grossly normal, normal pharynx, no angioedema, normal voice, uvula midline, moist mucus membranes Neck: full range of motion Respiratory: lungs clear, normal breath sounds, no rhonchi, no respiratory distress, no accessory muscle use, no wheezing, speaking full sentences Cardiovascular #1: regular rate, rhythm, no edema Gastrointestinal: non tender, soft, no mass, non-distended, no guarding, no rebound Genitourinary: no CVA tenderness, deferred Musculoskeletal: back normal, digits/nails normal, gait/station normal, normal range of motion, non-tender, no calf tenderness, Dashawn's Sign negative Neurologic: alert, oriented x3, responsive, motor strength/tone normal, sensory intact Psychiatric: mood/affect normal Skin: no rash Medical Decision Making PA Attestation Dr. Wilder is my supervising Physician whom patient management has been discussed with. Diagnostic Impression: Primary Impression: Dysfunctional uterine bleeding Additional Impression: Hemorrhagic cyst of ovary ER Course Pt presents to ED c/o vaginal bleeding. DDX considered but are not limited to threatened , incomplete , complete , ectopic, UTI, septic , fibroids, dysfunctional uterine bleeding, STI, ovarian torsion, anemia, nephrolithiasis. Low suspicion for PE or DVT per well's criteria, no calf pain, no chest pain, SOB, negative Dashawn, no tachycardia. no abdominal tenderness to palpation with distraction. Patient not writhing in pain, nontoxic appearing, low suspicion for kidney stones. Negative Rovsing, no fever, low suspicion for appendicitis, does not require CT at this time. VITAL SIGNS are WNL, patient is afebrile Pelvic exam deferred. Ordered CBC, CMP, UA, UCG, bHCG, IV NS and pelvic US. ER COURSE: patient declined Tylenol for pain symptoms. CBC no elevation in WBC, H&H normal CMP unremarkable, no elevation in LFTs or lipase Coag studies normal UA results blood in urine, no signs of infection, negative protein, blood likely due to bleeding symptoms Urine negative Results discussed with patient. Pelvus US shows hemorraghic cyst, no free fluid. Discuss results with the patient. Provided patient with copy of results. Instructed patient to followup with PCP and discuss results of report with patient, discuss need for further treatment and referral. Results discussed with patient. Needs further testing and evaluation for vaginal bleeding as outpatient. Patient resting comfortably, in no acute distress, nontoxic appearing. F/u with OBGYN. Followup with PCP. Discuss control medication. patient also reports history of acid reflux, requesting contact information for specialist. Advised to avoid spicy foods, dairy, alcohol. Keep head of bed elevated. Instructed patient follow up GI specialist. Keep food diary. Discuss further testing and treatment and at that time. Provided with contact information for GI specialist. ER precautions given. DISCHARGE: At this time pt. is stable for d/c to home. At this time patient is resting comfortably, in no acute distress, nontoxic appearing, smiling and talking without difficulty. Will provide printed patient care instructions, and any necessary prescriptions. Patient instructed to follow with OBGYN for further treatment and referral as needed. Care plan and follow up instructions have been discussed with the patient prior to discharge. Patient reports understanding and agreement to treatment plan. Patient questions asked and answered. ER precautions given, patient instructed to return to ER immediately for any new or worsening of symptoms. - Please note that this Emergency Department Report was dictated using [employer]er technology software, occasionally this can lead to erroneous entry secondary to interpretation by the dictation equipment. CT/MRI/US Diagnostic Results CT/MRI/US Diagnostic Results : Imaging Test Ordered: Pelvic US Impression essentially unremarkable exam. Note that previously demonstrated 4 cm hemorrhagic cyst is no longer evident. Uncertain as to whether the 2 cm hemorrhage or hemorrhagic cyst currently is new or is residual from that lesion. Last Vital Signs Date Time Temp Pulse Resp B/P (MAP) Pulse Ox O2 Delivery O2 Flow Rate FiO2 04/10/18 12:09 98.1 18 99/67 100 Room Air 04/10/18 11:57 80 Status: improved Disposition: HOME, SELF-CARE Condition: Stable Patient Instructions: Dysfunctional Uterine Bleeding, Ovarian Cyst, Easy-to- Read Additional Instructions: Followup with OBGYN. Followup with GI specialist. Take medications as directed. Take Tylenol for pain, do not take Ibuprofen. Patient questions asked and answered. ER precautions given, patient instructed to return to ER immediately for any new or worsening of symptoms including but not limited to chest pain, SOB, intractable vomiting, profuse vaginal bleeding, abdominal pain. Zaheer Mendez Apr 10, 2018 12:15
[2018-04-10 12:47] LABS: EOSINOPHILS % (AUTO) 11.1 % (0.0-3.0); HEMATOCRIT 38.5 % (37.0-47.0); LYMPHOCYTES % (AUTO) 39.9 % (20.0-45.0); MEAN CORPUSCULAR VOLUME 94 FL (80-99); PLATELET COUNT 116 K/UL (150-450); RED BLOOD COUNT 4.09 M/UL (4.20-5.40); RED CELL DISTRIBUTION WIDTH 10.9 % (11.6-14.8); WHITE BLOOD COUNT 4.4 K/UL (4.8-10.8)
[2018-04-10 12:48] LABS: APPEARANCE,URINE CLEAR; BILIRUBIN, URINE NEGATIVE (NEGATIVE); GLUCOSE, URINE (UA) NEGATIVE (NEGATIVE); KETONES,URINE NEGATIVE (NEGATIVE); LEUKOCYTE ESTERASE ,URINE NEGATIVE (NEGATIVE); NITRITE,URINE NEGATIVE (NEGATIVE); PH,URINE 6.5 (4.5-8.0); PROTEIN,URINE NEGATIVE (NEGATIVE); UROBILINOGEN,URINE NORMAL MG/DL (0.0-1.0)
[2018-04-10 12:56] LABS: INR 1.1 (0.9-1.1)
[2018-04-10 12:57] LABS: COLOR,URINE YELLOW
[2018-04-10 13:00] LABS: ANION GAP 6 mmol/L (5-15); BLOOD UREA NITROGEN 9 mg/dL (7-18); CALCIUM 8.6 MG/DL (8.5-10.1); CARBON DIOXIDE 29 MMOL/L (21-32); CHLORIDE 106 MMOL/L (98-107); CREATININE 0.9 MG/DL (0.55-1.30); POTASSIUM 4.1 MMOL/L (3.5-5.1); SODIUM 140 MMOL/L (136-145)
[2018-04-10 13:10] LABS: ALANINE AMINOTRANSFERASE 15 U/L (12-78); ALBUMIN 3.4 G/DL (3.4-5.0); ALBUMIN/GLOBULIN RATIO 0.9 (1.0-2.7); ALKALINE PHOSPHATASE 68 U/L (46-116); ASPARTATE AMINO TRANSFERASE 14 U/L (15-37); BILIRUBIN,TOTAL 1.2 MG/DL (0.2-1.0)
[2018-04-10 13:11] LABS: BILIRUBIN,DIRECT 0.2 MG/DL (0.0-0.3)
--- NOTE | 2018-04-10 14:48 | Diagnostic Imaging Report ---
Indication: Chronic pelvic pain, vaginal bleeding, negative test Technique: Transabdominal and transvaginal images Comparison: 02/09/2018 Findings: Uterus measures 9.1 cm length by 4.6 cm AP. The endometrium measures 2 mm thick. No myometrial abnormality. Left ovary measures 3.2 cm length. Right ovary measures 4.6 cm length. Left ovary demonstrates a 2 cm follicle with low level internal echoes, probably hemorrhagic. Right ovary is unremarkable. No free cul-de-sac fluid. When compared to the prior exam, the previously demonstrated 4 cm hemorrhagic cyst is no longer evident Impression: Essentially unremarkable exam. Note that previously demonstrated 4 cm hemorrhagic cyst is no longer evident. Uncertain as to whether the 2 cm hemorrhagic cyst currently is new or is residual from that lesion
[2018-04-10 15:16] VITALS: BP 102/74
[2018-04-10 15:39] VITALS: BP 105/71
== END 2018-04-10 15:39 | disposition home or self-care (01) ==
LOC: EMR 13:30
DX: N83.209 Unspecified ovarian cyst, unspecified side (principal); N93.8 Other specified abnormal uterine and vaginal bleeding
CPT/HCPCS: 36415; 76830; 76856; 80053; 81003; 81025; 82248; 83690; 85025; 85610; 85730; 96360; 99284

== ENCOUNTER 2019-01-14 17:52 | Emergency (ER) | payer MEDICAID ==
[~2019-01-14] VITALS: Ht 175.3 cm; Wt 56.7 kg
[~2019-01-14 17:52] MED LIST changes: +NKM
[2019-01-14] MEDS ORDERED: Isovue-300 100ml vial INJ PRN (18:15)
--- NOTE | 2019-01-14 18:20 | NUR ---
ED Nurse Note:pt. came with abdominal pain nausea, pt. refused nausea meds, blood and urine sent to labns, given IV fluids and meds
[2019-01-14 18:45] LABS: BASOPHILS % (AUTO) 1.4 % (0.0-2.0); EOSINOPHILS % (AUTO) 0.1 % (0.0-3.0); HEMATOCRIT 37.6 % (37.0-47.0); HEMOGLOBIN 12.8 G/DL (12.0-16.0); LYMPHOCYTES % (AUTO) 34.4 % (20.0-45.0); MEAN CORPUSCULAR VOLUME 98 FL (80-99); MONOCYTES % (AUTO) 9.4 % (1.0-10.0); NEUTROPHILS % (AUTO) 54.8 % (45.0-75.0); PLATELET COUNT 136 K/UL (150-450); RED BLOOD COUNT 3.82 M/UL (4.20-5.40); WHITE BLOOD COUNT 5.5 K/UL (4.8-10.8)
[2019-01-14 18:50] LABS: APPEARANCE,URINE CLEAR; BILIRUBIN, URINE NEGATIVE (NEGATIVE); COLOR,URINE PALE YELLOW; GLUCOSE, URINE (UA) NEGATIVE (NEGATIVE); KETONES,URINE NEGATIVE (NEGATIVE); LEUKOCYTE ESTERASE ,URINE 1+ (NEGATIVE); NITRITE,URINE NEGATIVE (NEGATIVE); PH,URINE 8 (4.5-8.0); PROTEIN,URINE NEGATIVE (NEGATIVE); UROBILINOGEN,URINE 1 MG/DL (0.0-1.0)
[2019-01-14 18:56] VITALS: BP 103/65
[2019-01-14 18:57] LABS: ANION GAP 10 mmol/L (5-15); BLOOD UREA NITROGEN 4 mg/dL (7-18); CALCIUM 9.3 MG/DL (8.5-10.1); CARBON DIOXIDE 25 MMOL/L (21-32); CHLORIDE 106 MMOL/L (98-107); CREATININE 0.7 MG/DL (0.55-1.30); POTASSIUM 3.7 MMOL/L (3.5-5.1); SODIUM 141 MMOL/L (136-145)
[2019-01-14 19:07] LABS: ALANINE AMINOTRANSFERASE 10 U/L (12-78); ALBUMIN 3.9 G/DL (3.4-5.0); ALBUMIN/GLOBULIN RATIO 1.1 (1.0-2.7); ALKALINE PHOSPHATASE 60 U/L (46-116); ASPARTATE AMINO TRANSFERASE 17 U/L (15-37); BILIRUBIN,TOTAL 1.6 MG/DL (0.2-1.0)
[2019-01-14 19:08] LABS: BILIRUBIN,DIRECT 0.3 MG/DL (0.0-0.3)
--- NOTE | 2019-01-14 20:00 | NUR ---
ER Nurse Note: Scheduled US. Radiology aware. SLIV LT hand; patent. Pt a&ox4, VSS, no signs of distress, RA. Denies pain, n/v. Will continue to [facility].
--- NOTE | 2019-01-14 21:34 | Emergency Room Report ---
History of Present Illness General Chief Complaint: Abdominal Pain Source: Medical Record Present Illness HPI 33-year-old female with history of left-sided ovarian cyst here complaining of 2 days of left lower quadrant pain and nausea. Patient denies any vomiting, diarrhea, constipation, blood in her stool. Patient reports that her last period was November 2018. Patient has not yet had a. And before the used to be regular. Patient denies dizziness, headache, chest pain, shortness of breath, palpitation, however complains of urinary frequency. Denies dysuria and hematuria. Patient sitting comfortably with stable vital signs. Reports that has not seen a prospecting observer regarding her ovarian cyst in many years. Patient is G2, . The emergency department we found that the patient is . Allergies: Coded Allergies: FAMOTIDINE (Verified Allergy, Unknown, 01/14/19) Patient History Past Medical History: see triage record Past Surgical History: unable to obtain Pertinent Family History: none Last Menstrual Period: 11/27/18 Immunizations: UTD Reviewed Nursing Documentation: PMH: Agreed; PSxH: Agreed Nursing Documentation-PMH Past Medical History: No History, Except For Hx Cardiac Problems: Yes - Irregular heartbeat, LEFT OVARIAN CYST Review of Systems All Other Systems: negative except mentioned in HPI Physical Exam Vital Signs Date Time Temp Pulse Resp B/P (MAP) Pulse Ox O2 Delivery O2 Flow Rate FiO2 01/14/19 18:02 98.4 83 18 103/65 (78) 100 Room Air Sp02 EP Interpretation: reviewed, normal General Appearance: no apparent distress, alert, GCS 15, non-toxic Head: normocephalic, atraumatic Eyes: bilateral eye normal inspection, bilateral eye PERRL ENT: hearing grossly normal, normal pharynx, no angioedema, normal voice Neck: full range of motion, supple/symm/no masses Respiratory: chest non-tender, lungs clear, normal breath sounds, speaking full sentences Cardiovascular #1: regular rate, rhythm, no edema, no murmur Gastrointestinal: normal bowel sounds, non tender, soft, non-distended, no guarding, no rebound Rectal: deferred Genitourinary: normal inspection, no CVA tenderness Musculoskeletal: back normal, gait/station normal, normal range of motion, non- tender Neurologic: alert, oriented x3, responsive, motor strength/tone normal, sensory intact, speech normal Psychiatric: judgement/insight normal, memory normal, mood/affect normal, no suicidal/homicidal ideation Skin: no rash Lymphatic: no adenopathy Medical Decision Making PA Attestation All my diagnosis and treatment plans were reviewed ad discussed with my supervising physician Dr. Head Diagnostic Impression: Primary Impression: IUP (intrauterine ), incidental Additional Impression: Ovarian cyst ER Course 33-year-old female with history of left-sided ovarian cyst here complaining of 2 days of left lower quadrant pain and nausea. Patient denies any vomiting, diarrhea, constipation, blood in her stool. Patient reports that her last period was November 2018. Patient has not yet had a. And before the used to be regular. Patient denies dizziness, headache, chest pain, shortness of breath, palpitation, however complains of urinary frequency. Denies dysuria and hematuria. Patient sitting comfortably with stable vital signs. Reports that has not seen a prospecting observer regarding her ovarian cyst in many years. Patient is G2, . The emergency department we found that the patient is . Ddx considered but are not limited to: appendicitis, cholecystis, gastritis, gastroenteritis, UTI, pyelonephritis, SBO, diverticulitis, influenza with GI manifestation, , complication with Vital signs: are WNL, pt. is afebrile H&PE are most consistent with: Intrauterine , left ovarian cyst ORDERS: abdominal pain set, , abdominal US, vitamins, ED INTERVENTIONS: Zofran, NS bolus DISCHARGE: At this time pt. is stable for d/c to home. Will provide printed patient care instructions, and any necessary prescriptions. Care plan and follow up instructions have been discussed with the patient prior to discharge. Follow with your primary care provider to be sent to [facility] if vaginal bleeding cramping return to the emergency room CT/MRI/US Diagnostic Results CT/MRI/US Diagnostic Results : Imaging Test Ordered: OB US Impression IUP no subchorionic hemorrhage, left ovarian cyst Last Vital Signs Date Time Temp Pulse Resp B/P (MAP) Pulse Ox O2 Delivery O2 Flow Rate FiO2 01/14/19 18:56 83 18 Room Air 01/14/19 18:56 98.4 103/65 100 Disposition: HOME, SELF-CARE Condition: Stable Referrals: [facility],REFERR[facility] (PCP) Patient Instructions: Abdominal Pain During , Ovarian Cyst, Easy-to- Read Additional Instructions: Take medication as directed follow-up with your primary care provider avoid alcohol and avoid fish. Need to be sent to an [facility] for further work-up. If worsening symptoms, vaginal bleeding and cramping return to the emergency room. Sanchez Neil Jan 14, 2019 21:34
[2019-01-14] MEDS ORDERED: PRENATAL 19 TA1 EAC1 PO (21:36)
[2019-01-14 21:48] VITALS: BP 110/70
--- NOTE | 2019-01-14 21:48 | NUR ---
ER Nurse Note: Pt seen, treated, medically cleared for discharge by ERMD. Discharge instuctions and prescriptions given with repeat verbalization by pt. Emphasized to follow up with primay care provider; take whole course of medication. Explained each medication. All orders completed per ERMD orders. Pt a&ox4, VSS, no signs of distress. ID band removed. All questions answered per pt's questions. Pt left with all belongings, left with own transportation.
--- NOTE | 2019-01-15 11:39 | Diagnostic Imaging Report ---
Indication: Pelvic pain. Positive test Technique: Grayscale and duplex Doppler imaging of the pelvis performed utilizing a transabdominal scan. Patient refused endovaginal exam. Comparison: None Findings: There is evidence of an intrauterine with identification of a gestational sac, yolk sac and pole. Based on crown-rump length gestational age is 7 weeks 2 days. However there is no heart tone or cardiac activity identified on this exam. The accuracy of the crown-rump length measurement is less than optimal as no endovaginal study was done. Patient refused endovaginal portion of the study. Generally by this stage of and with identification of a pole and nonidentification of cardiac activity, diagnosis would be that of intrauterine demise. However since no endovaginal scan was done, with less accuracy of dating the and given the early gestational age, a follow-up ultrasound is suggested. The viability of the is therefore indeterminate. In addition, identification of cardiac activity is further limited on transabdominal scan. There are cysts within the left ovary measuring 2 cm and 3 cm. The right ovary appears normal. Both ovaries show dopplerable blood flow. IMPRESSION: Evidence of intrauterine . No cardiac activity identified on this exam. However this is a limited evaluation with only a transabdominal scan performed. Viability is indeterminate. Recommend follow-up ultrasound and serial quantitative beta-hCG evaluation.
== END 2019-01-14 21:48 | disposition home or self-care (01) ==
LOC: EMR 18:30
DX: N83.202 Unspecified ovarian cyst, left side (principal); Z33.1 Pregnant state, incidental; Z88.8 Allergy status to other drugs, medicaments and biological substances; I49.9 Cardiac arrhythmia, unspecified
CPT/HCPCS: 36415; 76801; 76830; 80053; 80307; 81001; 81025; 82248; 84702; 85025; 99284; J2405; J7040

== ENCOUNTER 2019-08-04 17:26 | Emergency (ER) | payer MEDICAID ==
[~2019-08-04] VITALS: Ht 175.3 cm; Wt 54.4 kg
[~2019-08-04 17:26] MED LIST changes: +PRENATAL 19 TA1 EAC1 PO
[2019-08-04 18:00] VITALS: BP 106/65
--- NOTE | 2019-08-04 18:10 | NUR ---
ED Nurse Note: Pt ambulated to ed d/t possible foreign body in throat. per pt, she's having hard a time to swallow due to throat pain. VSS, temp is 99F at triage. Placed on RME.
--- NOTE | 2019-08-04 19:02 | NUR ---
ED Nurse Note: ERMD at bedside.
--- NOTE | 2019-08-04 19:11 | NUR ---
ED Nurse Note: IV line established.
[2019-08-04] MEDS ORDERED: Omnipaque-300 100ml vial INJ ONE (19:15)
[2019-08-04 19:39] LABS: APPEARANCE,URINE CLEAR; BILIRUBIN, URINE NEGATIVE (NEGATIVE); COLOR,URINE PALE YELLOW; GLUCOSE, URINE (UA) NEGATIVE (NEGATIVE); KETONES,URINE NEGATIVE (NEGATIVE); LEUKOCYTE ESTERASE ,URINE NEGATIVE (NEGATIVE); NITRITE,URINE NEGATIVE (NEGATIVE); PH,URINE 5 (4.5-8.0); PROTEIN,URINE NEGATIVE (NEGATIVE); UROBILINOGEN,URINE NORMAL MG/DL (0.0-1.0)
--- NOTE | 2019-08-04 21:10 | Diagnostic Imaging Report ---
Indication: Difficulty swallowing, foreign body in throat Technique: IV administration nonionic contrast. Spiral acquisitions obtained through the neck. Multiplanar reconstructions were generated. Total dose length product 163 mGycm. CTDIvol(s) 15, 119, 5 mGy. Dose reduction achieved using automated exposure control Comparison: none Findings: Nasopharynx, oropharynx, hypopharynx, larynx are all unremarkable. No radiopaque foreign body demonstrated. No fluid collection or other findings to suggest abscess demonstrated. Included lung apices are clear except for some small subpleural opacities. The trachea is unremarkable. The bones are unremarkable. Impression: Negative This agrees with the preliminary interpretation provided overnight by [facility]. The CT scanner at [facility] is accredited by the [employer] and the scans are performed using protocols designed to limit radiation exposure to as low as reasonably achievable to attain images of sufficient resolution adequate for diagnostic evaluation.
--- NOTE | 2019-08-04 21:33 | Emergency Room Report ---
History of Present Illness General Chief Complaint: Foreign Body Source: Patient Present Illness HPI Patient states that she ate fish 4 days ago. She believes she has a bone stuck in her throat. She states she has a sensation of something being stuck and it is difficult to swallow. She denies recent illness. She denies cough or congestion. She denies fever or chills. She denies nausea or vomiting. She has no other complaints. COVID-19 risk:Travel to affect: No Has patient experienced alonso: No Allergies: Coded Allergies: FAMOTIDINE (Verified Allergy, Unknown, 01/14/19) Patient History Past Medical History: none, see triage record Social History: Denies: smoking, alcohol use, drug use Now: No - 08/02/19 Reviewed Nursing Documentation: PMH: Agreed; PSxH: Agreed Nursing Documentation-PMH Hx Cardiac Problems: Yes - Irregular heartbeat, LEFT OVARIAN CYST Review of Systems All Other Systems: negative except mentioned in HPI Physical Exam Vital Signs Date Time Temp Pulse Resp B/P (MAP) Pulse Ox O2 Delivery O2 Flow Rate FiO2 08/04/19 18:00 99.1 16 106/65 98 Room Air 08/04/19 18:00 78 Sp02 EP Interpretation: reviewed, normal General Appearance: no apparent distress, alert, GCS 15, non-toxic Head: normocephalic, atraumatic Eyes: bilateral eye normal inspection, bilateral eye PERRL ENT: hearing grossly normal, normal pharynx, no angioedema, normal voice Neck: normal inspection, full range of motion, supple, supple/symm/no masses Respiratory: chest non-tender, lungs clear, normal breath sounds, no respiratory distress, no retraction, no accessory muscle use, speaking full sentences Cardiovascular #1: regular rate, rhythm, no edema Gastrointestinal: normal bowel sounds, non tender, soft, non-distended, no guarding, no rebound Rectal: deferred Musculoskeletal: back normal, normal range of motion, non-tender Neurologic: alert, motor strength/tone normal, oriented x3, sensory intact, responsive, speech normal Psychiatric: judgement/insight normal, memory normal, mood/affect normal, no suicidal/homicidal ideation Medical Decision Making Diagnostic Impression: Primary Impression: Globus sensation Additional Impression: Sensation of foreign body in esophagus ER Course This patient has a globus sensation. Possibly she had an abrasion of her upper esophagus. She underwent CT of the neck as a precaution. There was no evidence of any foreign body or any soft tissue findings that would indicate inflammation related to a fishbone being stuck in the soft tissue. There was an incidental finding of a small pleural-based nodular density in the right lung apex. The patient was educated of this finding and instructed to follow- up with her primary care physician for routine CT of her chest. I suspect this will just be followed by CT and is not concerning at this time for any malignancy. However, the patient was instructed that she would need to see her primary care physician for follow-up on this. Patient was instructed to use ibuprofen and follow-up closely with her primary care physician. Patient is in no distress and is managing her secretions without any difficulty. At this time , I did not identify an emergency medical condition. Laboratory Tests Test 08/04/19 19:00 Urine Color Pale yellow Urine Appearance Clear Urine pH 5 (4.5-8.0) Urine Specific [place] 1.010 (1.005-1.035) Urine Protein Negative (NEGATIVE) Urine Glucose (UA) Negative (NEGATIVE) Urine Ketones Negative (NEGATIVE) Urine Blood 1+ (NEGATIVE) H Urine Nitrite Negative (NEGATIVE) Urine Bilirubin Negative (NEGATIVE) Urine Urobilinogen Normal MG/DL (0.0-1.0) Urine Leukocyte Esterase Negative (NEGATIVE) Urine RBC 0-2 /HPF (0 - 2) Urine WBC 0-2 /HPF (0 - 2) Urine Squamous Epithelial Cells Few /LPF (NONE/OCC) Urine Bacteria Moderate /HPF (NONE) H Urine Yeast Few /HPF (NONE) H Urine HCG, Qualitative Negative (NEGATIVE) CT/MRI/US Diagnostic Results CT/MRI/US Diagnostic Results : Imaging Test Ordered: CT neck Impression CT NECK With Contrast: Impression: No acute disease. Deep spaces of the neck are within normal limits. No abscess. No suspicious lesion. Small pleural-based nodular density right lung apex. Last Vital Signs Date Time Temp Pulse Resp B/P (MAP) Pulse Ox O2 Delivery O2 Flow Rate FiO2 08/04/19 18:00 99.1 78 16 106/65 (79) 98 Room Air Status: improved Disposition: HOME, SELF-CARE Condition: Improved Patient Instructions: Swallowed Foreign Body, Adult Irene Haji DO Aug 04, 2019 21:33
--- NOTE | 2019-08-04 21:43 | NUR ---
ED Nurse Note: Pt cleared by health care Provider for discharge. DC instructions/prescription was given and explained to pt and verbalized understanding of teachings. All medical deviecs such as ID band and iv were removed. Pt is AAO x4, ambulatory and left with all personal belongings.
== END 2019-08-04 21:42 | disposition home or self-care (01) ==
LOC: EMR 21:40
DX: T18.108A Unspecified foreign body in esophagus causing other injury, initial encounter (principal); X58.XXXA Exposure to other specified factors, initial encounter; Y92.9 Unspecified place or not applicable; Z88.8 Allergy status to other drugs, medicaments and biological substances
CPT/HCPCS: 70491; 81003; 81025; 87086; Q9967; Z7502; 99284

== ENCOUNTER 2019-09-21 13:41 | Emergency (ER) | payer MEDICAID ==
[~2019-09-21] VITALS: Ht 175.3 cm; Wt 56.7 kg
[2019-09-21 14:00] VITALS: BP 110/77
--- NOTE | 2019-09-21 14:00 | NUR ---
ED Nurse Note: Patient from home, walked into ED c/o left-sided neck stiffness and pain that started when she woke up today. Patient states pain and stiffness radiates to left lower jaw, left side of chest and up into her head. No neuro deficits present. Urine collected and sent to lab.
[2019-09-21] MEDS ORDERED: Methocarbamol 750mg tab ORAL ONE (14:30)
--- NOTE | 2019-09-21 14:49 | Emergency Room Report ---
History of Present Illness General Chief Complaint: General Complaint Source: Patient Present Illness HPI 34 YO female presents to the ED c/o 01/28 in severity left sided neck pain that radiates down to the left lateral ribs. Pt. reports pain onset x 1 day she noticed when she awoke this am. Pt. reports at first the pain was so severe that she could not turn her head and she said it felt very tight. Pt. reports after massaging the area and stretching her symptoms improved. She states they did not however go away. Pt. reports associated VELA of the left side which also had relief with massage. She denies visual changes but reports she has been having very dry eyes x 2 weeks. She denies scratching sensation or photophobia. She denies recent illness, fevers or chills. Pt. reports the only strenuous activities she did recently was yesterday she was exercising doing leg lifts. She denies significant PMHx. other than having reaction to Motrin that caused transient heart palpitations. She reports that was a isolated episode and she does not take OTC IBU anymore because of that. She denies CP or palpitations today. she denies extremity pain or weakness. She reports several days ago she had some numbness/tingling in the right hand that resolved on its own. She denies rashes. Pt. denies N/V. She denies hx of HTN. She denies slurred speech. She denies SOB or calf pain. She reports pain exacerbated when turning her head all the way to the right. she denies midline neck or back pain. Allergies: Coded Allergies: FAMOTIDINE (Verified Allergy, Unknown, 01/14/19) COVID-19 Screening Contact w/high risk pt: No Recent Travel to affected area: No Experienced COVID-19 symptoms?: No Patient History Past Medical History: see triage record Past Surgical History: other - hemrrhoid removal Pertinent Family History: none Last Menstrual Period: 08/31 Now: No Reviewed Nursing Documentation: PMH: Agreed; PSxH: Agreed Nursing Documentation-PMH Past Medical History: No History, Except For Hx Cardiac Problems: Yes - Irregular heartbeat, LEFT OVARIAN CYST Review of Systems All Other Systems: negative except mentioned in HPI Physical Exam Vital Signs Date Time Temp Pulse Resp B/P (MAP) Pulse Ox O2 Delivery O2 Flow Rate FiO2 09/21/19 13:49 98.1 91 16 110/77 (88) 98 Room Air Sp02 EP Interpretation: reviewed, normal General Appearance: no apparent distress, alert, GCS 15, non-toxic Head: normocephalic, atraumatic Eyes: bilateral eye normal inspection, bilateral eye PERRL, bilateral eye EOMI ENT: hearing grossly normal, normal voice Neck: full range of motion, no meningismus, no bony tend, tender lateral - Left lateral and left anterior-- SCM muscle is tender with palpation. as well as left trapezius. No midline cervical ttp. no palpable step-off. FROM. pain with turning head all the way to the left. Respiratory: chest non-tender, lungs clear, normal breath sounds, no respiratory distress, no accessory muscle use, no wheezing, speaking full sentences Cardiovascular #1: regular rate, rhythm, normal capillary refill Cardiovascular #2: 2+ radial (R), 2+ radial (L) Musculoskeletal: normal range of motion, gait/station normal, tender - ttp to the left pectoralis with radiation to the lateral aspect of the left upper ribs in the mid axillary area. no localized bony tpp. Negative flail chest. Neurologic: alert, motor strength/tone normal, distal neuro normal, oriented x3 , sensory intact, responsive, speech normal, normal gait, no pronator, grossly normal, no focal defects, other - equal tie layer strength. no Nystagmus. Psychiatric: judgement/insight normal, memory normal Skin: no rash, normal color Medical Decision Making PA Attestation Dr. Washington is my supervising Physician whom patient management has been discussed with. Diagnostic Impression: Primary Impression: Neck pain on left side ER Course 34 YO female presents to the ED c/o 01/28 in severity left sided neck pain that radiates down to the left lateral ribs. Pt. reports pain onset x 1 day she noticed when she awoke this am. Pt. reports at first the pain was so severe that she could not turn her head and she said it felt very tight. Pt. reports after massaging the area and stretching her symptoms improved. She states they did not however go away. Pt. reports associated VELA of the left side which also had relief with massage. She denies visual changes but reports she has been having very dry eyes x 2 weeks. She denies scratching sensation or photophobia. She denies recent illness, fevers or chills. Pt. reports the only strenuous activities she did recently was yesterday she was exercising doing leg lifts. She denies significant PMHx. other than having reaction to Motrin that caused transient heart palpitations. She reports that was a isolated episode and she does not take OTC IBU anymore because of that. She denies CP or palpitations today. she denies extremity pain or weakness. She reports several days ago she had some numbness/tingling in the right hand that resolved on its own. She denies rashes. Pt. denies N/V. She denies hx of HTN. She denies slurred speech. She denies SOB or calf pain. She reports pain exacerbated when turning her head all the way to the right. she denies midline neck or back pain. Ddx considered but are not limited to Fracture, dislocation, contusion, Sprain/ Strain/Spasm,Clot, dissection, or Neoplastic mets just to name a few. Vital signs: are WNL, pt. is afebrile H&PE are most consistent with musculoskeletal injury will perform imaging to r/ o fractures/dislocations. ORDERS: - EKG: WNL 78 NSR ED INTERVENTIONS: - Robaxin, Tylenol and Lidoderm TP. Pt. reports her symptoms have improved significantly and she rates her pain as 3 /10 in severity. D/w pt. very strict ED return precautions, and went over symptoms that would indicate prompt return to the ED. DISCHARGE: At this time pt. is stable for d/c to home. Will provide printed patient care instructions, and any necessary prescriptions. Care plan and follow up instructions have been discussed with the patient prior to discharge. EKG Diagnostic Results EP Interpretation: Dr. Washington Rate: normal - 78 Rhythm: NSR ST Segments: no acute changes ASA given to the pt in ED: No PA Scribe Text This Interpretation was scribed by CANDELARIO Patel. Last Vital Signs Date Time Temp Pulse Resp B/P (MAP) Pulse Ox O2 Delivery O2 Flow Rate FiO2 09/21/19 14:00 98.1 68 16 110/77 98 Room Air Disposition: HOME, SELF-CARE Condition: Stable Scripts Carboxymethylcellulose Sodium (LUBRICANT EYE) 15 Ml Drops 1 DRP OP BID, #15 ML Prov: Sarita Patel 09/21/19 Lidocaine Patch* (Lidoderm Patch*) 1 Each Adh..patch 1 PATCH TOPIC DAILY, #30 PATCH 0 Refills Patch(es) may remain in place for up to 12 hours in any 24-hour period. Prov: Sairta Patel 09/21/19 Acetaminophen* (TYLENOL EXTRA STRENGTH*) 500 Mg Tablet 500 MG ORAL Q6H PRN for Mild Pain/Temp > 100.5, #20 TAB 0 Refills Prov: Sarita Patel 09/21/19 Methocarbamol* (ROBAXIN-750*) 750 Mg Tablet 750 MG PO QID, #28 TAB 0 Refills Prov: Sarita Patel 09/21/19 Referrals: Maxime Villegas MD [facility] Patient Instructions: Soft Tissue Injury of the Neck, [id number] Additional Instructions: Take medications as directed. Do not drink alcohol, drive, or operate heavy machinery while taking Robaxin ( Muscle Relaxers) as this may cause drowsiness. !!!!Return sooner to ED if new symptoms occur, or current symptoms become worse such as worsening of pain, dizziness, visual changes, or notable weakness in the extremities on just one side. Follow up with a Primary Care Provider in 3-5 days, even if your symptoms have resolved. --Please review list of primary care clinics, if you do not already have a primary care provider - Please note that this Emergency Department Report was dictated using [employer] self service store technology software, occasionally this can lead to erroneous entry secondary to interpretation by the dictation equipment. Sraita Patel September 21, 2019 14:49
[2019-09-21] MEDS ORDERED: Acetaminophen 500mg (ES) tab ORAL ONE (15:00)
--- NOTE | 2019-09-21 15:20 | NUR ---
ED Nurse Note: Sarita PALOMINO at bedside. Patient resting in bed, no s/s of acute distress. Patient states her neck pain and stiffness feels much better than before, now rates a 5/10 aching pain.
[2019-09-21] MEDS ORDERED: ROBAXIN-750750 MG PO (15:29)
[2019-09-21] MEDS ORDERED: LIDODERM700 M1 TOPIC (15:29)
[2019-09-21] MEDS ORDERED: TYLENOL EXTRA500 MG ORAL (15:29)
[2019-09-21 15:55] VITALS: BP 115/74
--- NOTE | 2019-09-21 15:55 | NUR ---
ER DISCHARGE NOTE: Patient is cleared to be discharged per Sarita PALOMINO, pt is aox4, on room air, with stable vital signs. pt was given dc and prescription instructions, pt was able to verbalize understanding, pt id band and iv site removed without complications. pt is able to ambulate with steady gait. pt took all belongings.
[2019-09-21] MEDS ORDERED: LUBRICANT EYE15 M1 OP (16:10)
== END 2019-09-21 15:55 | disposition home or self-care (01) ==
LOC: EMR 14:11
DX: M54.2 Cervicalgia (principal); R42 Dizziness and giddiness; Z88.8 Allergy status to other drugs, medicaments and biological substances
CPT/HCPCS: 93005; Z7502; 99283